=== PATIENT | male | born 1960 | race Caucasian/White ===

== ENCOUNTER 2021-10-11 05:53 | Day surgery (SDC) | payer BC ==
[~2021-10-11] VITALS: Ht 180.3 cm; Wt 107.9 kg
[2021-10-11] MEDS ORDERED: PREVACID 30MG30 M1 PO (06:13)
[2021-10-11] MEDS ORDERED: COZAAR 50MG50 MG/TAB PO (06:14)
[2021-10-11] MEDS ORDERED: ZOCOR 40MG40 MG PO (06:14)
[2021-10-11] MEDS ORDERED: COREG12.5 MG PO (06:14)
[2021-10-11 06:19] VITALS: BP 159/105; PULSE 61; TEMP 98.7
--- NOTE | 2021-10-11 06:43 | NUR ---
Anesthesia desk called regarding PT elevated BP; new orders recieved. RN preparing medication.
[2021-10-11 07:30] VITALS: BP 111/85; PULSE 70; TEMP 97.3
--- NOTE | 2021-10-11 07:30 | NUR ---
PATIENT ARRIVES TO ROOM 1 VIA CART. ASSIST TO CHAIR X 1. VITAL SIGNS WNL. FAMILY MEMBER AT BEDSIDE. PATIENT REQUESTS WATER AND A MUFFIN. WILL CONTINUE TO MONITOR.
[2021-10-11 07:45] VITALS: BP 144/89; PULSE 62
--- NOTE | 2021-10-11 07:45 | NUR ---
PATIENT IS AWAKE AND ORIENTED. VITAL SIGNS WNL. DENIES NAUSEA AFTER EATING. IV REMOVED. WILL CONTINUE TO MONITOR.
[2021-10-11 08:00] VITALS: BP 146/82; PULSE 70
--- NOTE | 2021-10-11 08:00 | NUR ---
PATIENT IS READY FOR DISCHARGE. VITAL SIGNS WNL. PHYSICIAN ALREADY CAME AND SPOKE WITH PATIENT. DISCHARGE INSTRUCTIONS REVIEWED. WILL D/C ONCE HE IS DRESSED.
== END 2021-10-11 08:04 | disposition home or self-care (01) ==
LOC: SDCO 05:53
DX: K29.30 Chronic superficial gastritis without bleeding (principal); K31.A0 Gastric intestinal metaplasia, unspecified; K44.9 Diaphragmatic hernia without obstruction or gangrene; K29.70 Gastritis, unspecified, without bleeding; Q39.8 Other congenital malformations of esophagus; Z87.891 Personal history of nicotine dependence; Z86.16 Personal history of COVID-19
CPT/HCPCS: J0360; J2704; J7120